=== PATIENT | male | born 1950 ===

== ENCOUNTER 2024-08-23 10:45 | Inpatient (IN) | payer OTHER ==
[~2024-08-23] VITALS: Ht 182.9 cm; Wt 99.8 kg
[2024-08-23 10:42] VITALS: BP 163/77
[~2024-08-23 10:45] MED LIST: DESOXYN5 MG; DILTIAZEM ER300 MG PO; DIOVAN320 MG PO; HORIZANT300 MG PO; LIPITOR20 MG; METFORMIN HCL500 M3 PO
[2024-09-04] MEDS ORDERED: METRONIDAZOLE/SODIUM CHLORIDE 500 MG/100 ML PIGGYBACK IV ONE (09:53)
[2024-09-04] MEDS ORDERED: CEFTRIAXONE SODIUM 2,000 MG VIAL ONE (09:53)
[2024-09-04] MEDS ORDERED: BUPIVACAINE HCL/MPF 0.5% 30ML VIAL ONE (10:51)
[2024-09-04] MEDS ORDERED: DIBUCAINE 30 GM TUBE ONE (10:52)
[2024-09-04] MEDS ORDERED: POVIDONE-IODINE 118 ML BOTT TOP ONE ×2 (10:52→12:00)
[2024-09-04] MEDS ORDERED: LIDOCAINE HCL 1%/EPINEPHRINE 20ML VIAL IJ ONE ×2 (10:52→12:00)
[2024-09-04] MEDS ORDERED: HEMOSTATIC MATRIX 1 KIT KIT TOP ONE ×2 (10:52→12:00)
[2024-09-04] MEDS ORDERED: DIBUCAINE 30 GM TUBE RECTAL ONE (12:00)
[2024-09-04] MEDS ORDERED: BUPIVACAINE HCL 30 ML VIAL IJ ONE (12:00)
[2024-09-04] MEDS ORDERED: SUGAMMADEX SODIUM 200 MG/2 ML VIAL IV ONE ×2 (12:16→13:15)
[2024-09-04] MEDS ORDERED: ONDANSETRON HCL 2 MG/ML VIAL IV PRN (13:45)
[2024-09-04] MEDS ORDERED: MORPHINE SULFATE 4 MG/ML CARTRIDGE IV PRN (13:45)
[2024-09-04] MEDS ORDERED: OxyCODONE HCL 5 MG TABLET (ROXICODONE) PO PRN (13:45)
[2024-09-04] MEDS ORDERED: RINGERS SOLUTION,LACTATED 1,000 ML IV SCH (13:45)
[2024-09-04] MEDS ORDERED: MORPHINE SULFATE 4 MG/ML VIAL IV ONE ×2 (14:00→15:50)
[2024-09-04] MEDS ORDERED: ACETAMINOPHEN 500 MG GEL..CAP PO SCH (14:00)
[2024-09-04] MEDS ORDERED: ENALAPRILAT DIHYDRATE 1.25 MG/ML VIAL IV ONE (14:45)
[2024-09-04] MEDS ORDERED: ENALAPRILAT DIHYDRATE 2.5 MG/2 ML VIAL IV ONE (15:30)
[2024-09-04] MEDS ORDERED: METOCLOPRAMIDE HCL 5 MG/ML VIAL ONE (15:50)
[2024-09-04] MEDS ORDERED: SIMETHICONE 125 MG CAPSULE PO ONE (15:51)
[2024-09-04] MEDS ORDERED: GABAPENTIN 300 MG CAPSULE PO ONE (15:51)
[2024-09-04] MEDS ORDERED: HYOSCYAMINE SULFATE 0.125 MG TAB.SUBL ONE (15:51)
[2024-09-04] MEDS ORDERED: hydrALAZINE HCL 20 MG VIAL ONE (16:02)
[2024-09-04] MEDS ORDERED: HYOSCYAMINE SULFATE 0.125 MG TAB.SUBL SL SCH (17:00)
[2024-09-04] MEDS ORDERED: METOCLOPRAMIDE HCL 5 MG/ML VIAL IV SCH (17:00)
[2024-09-04] MEDS ORDERED: SIMETHICONE 125 MG CAPSULE PO SCH (17:00)
[2024-09-04] MEDS ORDERED: GABAPENTIN 300 MG CAPSULE PO SCH (17:00)
[2024-09-04] MEDS ORDERED: POLYETHYLENE GLYCOL 3350 17 GM BLIST.PACK PO SCH (17:00)
[2024-09-04 19:00] VITALS: BP 166/69; O2SAT 94
[2024-09-04] MEDS ORDERED: FAMOTIDINE/PF 20 MG/2 ML VIAL IV PUSH SCH (21:00)
[2024-09-05 00:05] VITALS: BP 131/71; O2SAT 95
[2024-09-05 06:49] LABS: HEMOGLOBIN 14.2 g/dL (13-16.00); MEAN CELL VOLUME 93.4 fL (80.0-100.00); MEAN CORPUSCULAR HEMOGLOBIN 32.4 pg (27.00-32.0); MEAN CORPUSCULAR HGB CONC 34.7 g/dl (32.0-36.0); PLATELET COUNT 188 K/uL (150-450); RED BLOOD COUNT 4.38 M/uL (4.00-6.00); RED CELL DISTRIBUTION WIDTH 12.8 % (11.5-14.5)
[2024-09-05 07:09] LABS: ALBUMIN 3.8 gm/dL (3.4-5.0); CALCIUM 9.3 mg/dL (8.5-10.1); CREATININE SERUM 0.95 mg/dL (0.70-1.30); GFR 77.93; PHOSPHOROUS 4.3 mg/dL (2.5-4.9); POTASSIUM 3.32 mEq/L (3.5-5.1)
[2024-09-05 08:00] VITALS: BP 154/73; O2SAT 95
[2024-09-05] MEDS ORDERED: INTESTINEX680 M1 PO (08:48)
[2024-09-05] MEDS ORDERED: TRAM1TAB98 PO (08:50)
[2024-09-05] MEDS ORDERED: PATIENTS OWN MEDICATION (MEDICAMENTO EN PISO) PO SCH (09:00)
[2024-09-05] MEDS ORDERED: LACTOBACILLUS ACIDOPHILUS 1 CAP CAP PO SCH (09:00)
[2024-09-05] MEDS ORDERED: ENOXAPARIN SODIUM 40 MG/0.4 ML SYRINGE SUBCUTANEO SCH (17:00)
[2024-09-06] MEDS ORDERED: ENOXAPARIN SODIUM 40 MG/0.4 ML SYRINGE SUBCUTANEO SCH (09:00)
== END 2024-09-05 10:38 | disposition home or self-care (01) | DRG 376 ==
LOC: SURG 09-04 05:20 → O/R 09-04 05:20 → SURH 09-04 10:30 → SURG 09-04 17:04
PROVIDERS: ADMIT Surgery; ATTEND Surgery
PROC: 3E0T3BZ Introduction of Anesthetic Agent into Peripheral Nerves and Plexi, Percutaneous Approach (ICD-10-PCS; 2024-09-04)
PROC: 0DBP8ZZ Excision of Rectum, Via Natural or Artificial Opening Endoscopic (ICD-10-PCS; principal; 2024-09-04 10:30)
DX: C20 Malignant neoplasm of rectum (principal); D12.8 Benign neoplasm of rectum; K57.30 Diverticulosis of large intestine without perforation or abscess without bleeding
CPT/HCPCS: 0184T; 64430